=== PATIENT | female | born 2000 | race Caucasian/White ===

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

== ENCOUNTER 2020-08-22 17:59 | Emergency (ER) | payer BC, OTHER ==
[~2020-08-22] VITALS: Ht 170.2 cm; Wt 68.0 kg
[2020-08-22 18:06] VITALS: BP 117/84
== END 2020-08-22 20:06 | disposition left against medical advice (07) ==
LOC: ED 19:01
DX: J45.909 Unspecified asthma, uncomplicated (principal); Z53.21 Procedure and treatment not carried out due to patient leaving prior to being seen by health care provider
CPT/HCPCS: 99281